=== PATIENT | female | born 1995 | race Caucasian/White ===

== ENCOUNTER 2018-08-24 11:42 | Emergency (ER) | payer OTHER ==
[~2018-08-24] VITALS: Ht 160 cm; Wt 127.0 kg
[2018-08-24 13:48] LABS: URINE BILIRUBIN NEGATIVE (Negative); URINE BLOOD NEGATIVE (Negative); URINE CLARITY CLEAR; URINE COLOR YELLOW; URINE GLUCOSE-RANDOM* NEGATIVE (Negative); URINE KETONES TRACE (Negative); URINE LEUKOCYTES TRACE (Negative); URINE NITRITE NEGATIVE (Negative); URINE PROTEIN (DIPSTICK) NEGATIVE (Negative); URINE SPECIFIC GRAVITY >= 1.030 (1.005-1.035)
[2018-08-24 13:55] LABS: AMP/METHAMP Negative (Negative); BARBITURATES Negative (Negative); BENZODIAZEPINES Negative (Negative); COCAINE Negative (Negative); METHADONE Negative (Negative); OPIATES Negative (Negative); PCP Negative (Negative)
[2018-08-24 14:59] LABS: HEMATOCRIT 43.2 % (37.0-47.0); HEMOGLOBIN 14.1 gm/dL (12.0-15.0); MCHC 32.7 g/dL (28.0-37.0); MCV 85.6 fL (80.0-100.0); PLATELET COUNT 248 thou/uL (150-400); RBC 5.05 mil/uL (4.20-5.00); RDW 17.9 % (10.5-14.5); WBC 9.7 thou/uL (4.0-11.0)
[2018-08-24 15:00] LABS: ANION GAP 9 mmol/L (7-16); BUN 9 mg/dL (7-18); CALCIUM 8.9 mg/dL (8.5-10.1); CHLORIDE 108 mmol/L (98-107); CO2 25 mmol/L (21-32); CREATININE 0.7 mg/dL (0.6-1.0); GLUCOSE 82 mg/dL (74-106); SODIUM 142 mmol/L (136-145)
[2018-08-24 15:05] LABS: ALBUMIN 3.3 g/dL (3.4-5.0); SALICYLATE 4.1 mg/dL (2.8-20.0); SGOT 27 U/L (15-37); SGPT 41 U/L (30-65); TOTAL BILIRUBIN 0.2 mg/dL (<0.1-1.0); TOTAL PROTEIN 6.9 g/dL (6.4-8.2)
[2018-08-24 15:25] LABS: ABSOLUTE NEUTROPHILS 5.6 thou/uL (1.4-8.2); ANISOCYTOSIS 1+
[2018-08-24] MEDS ORDERED: EFFEXOR XR75 MG PO (19:11)
[2018-08-24] MEDS ORDERED: CLONAZEPAM 0.50.5 M1 PO (19:12)
[2018-08-24] MEDS ORDERED: CLOZAPINE200 MG PO (19:12)
[2018-08-24] MEDS ORDERED: DEPAKOTE 250MG250 M1 PO (19:12)
[2018-08-24] MEDS ORDERED: COLACE100 MG PO (19:13)
[2018-08-24] MEDS ORDERED: FEOSOL325 M1 PO (19:13)
[2018-08-24] MEDS ORDERED: VERAPAMIL E.R240 M1 PO (19:14)
[2018-08-24] MEDS ORDERED: OMEPRAZOLE40 MG PO (19:14)
[2018-08-24] MEDS ORDERED: NEURONTIN 400400 M1 PO (19:14)
[2018-08-24] MEDS ORDERED: TYLENOL325 MG PO (19:15)
[2018-08-24] MEDS ORDERED: DOXEPIN 25 MG C25 M1 PO (19:15)
[2018-08-24] MEDS ORDERED: MELATONIN3 MG PO (19:15)
[2018-08-24] MEDS ORDERED: XARELTO20 MG PO (19:15)
[2018-08-24] MEDS ORDERED: MIRALAX17 GM PO (19:16)
[2018-08-24] MEDS ORDERED: VENTOLIN HFA 1818 GM INH (19:16)
[2018-08-24] MEDS ORDERED: ONDANSETRON HCL4 M2 PO (19:16)
[2018-08-24] MEDS ORDERED: BENADRYL25 MG PO (19:16)
[2018-08-24] MEDS ORDERED: SILTUSSIN100 MG/5 M PO (19:17)
[2018-08-24] MEDS ORDERED: ABILIFY MAINTE400 M1 IM (19:17)
[2018-08-24] MEDS ORDERED: DEPO-PROVER150 MG/M1 IM (19:18)
[2018-08-24] MEDS ORDERED: IMODIUM A-D2 MG PO (19:19)
[2018-08-24] MEDS ORDERED: PEPTO-BISM262 MG/15 PO (19:19)
[2018-08-25 09:19] VITALS: BP 117/66
== END 2018-08-25 09:22 | disposition short-term general hospital (02) ==
LOC: ER 11:42
PROVIDERS: Physician Assistant
DX: R45.851 Suicidal ideations (principal); M79.5 Residual foreign body in soft tissue; F20.9 Schizophrenia, unspecified; J45.909 Unspecified asthma, uncomplicated; I10 Essential (primary) hypertension; Z91.048 Other nonmedicinal substance allergy status; Z88.8 Allergy status to other drugs, medicaments and biological substances; Z88.0 Allergy status to penicillin

== ENCOUNTER 2018-09-13 19:59 | Emergency (ER) | payer OTHER ==
[~2018-09-13] VITALS: Ht 157.5 cm; Wt 88.5 kg
[~2018-09-13 19:59] MED LIST: ABILIFY MAINTE400 M1 IM; BENADRYL25 MG PO; CLONAZEPAM 0.50.5 M1 PO; CLOZAPINE200 MG PO; COLACE100 MG PO; DEPAKOTE 250MG250 M1 PO; DEPO-PROVER150 MG/M1 IM; DOXEPIN 25 MG C25 M1 PO; EFFEXOR XR75 MG PO; FEOSOL325 M1 PO; IMODIUM A-D2 MG PO; MELATONIN3 MG PO; MIRALAX17 GM PO; NEURONTIN 400400 M1 PO; OMEPRAZOLE40 MG PO; ONDANSETRON HCL4 M2 PO; PEPTO-BISM262 MG/15 PO; SILTUSSIN100 MG/5 M PO; TYLENOL325 MG PO; VENTOLIN HFA 1818 GM INH; VERAPAMIL E.R240 M1 PO; XARELTO20 MG PO
[2018-09-13 20:38] LABS: URINE CLARITY CLEAR; URINE COLOR YELLOW; URINE PROTEIN (DIPSTICK) NEGATIVE (Negative); URINE SPECIFIC GRAVITY > 1.030 (1.005-1.035)
[2018-09-13 20:39] LABS: URINE BILIRUBIN NEGATIVE (Negative); URINE BLOOD NEGATIVE (Negative); URINE GLUCOSE-RANDOM* NEGATIVE (Negative); URINE KETONES NEGATIVE (Negative); URINE LEUKOCYTES-REFLEX NEGATIVE (Negative); URINE NITRITE-REFLEX NEGATIVE (Negative); URINE UROBILINOGEN 0.2 E.U./dl (0.2-1.0)
[2018-09-13 20:42] LABS: AMP/METHAMP Negative (Negative); BARBITURATES Negative (Negative); BENZODIAZEPINES Negative (Negative); COCAINE Negative (Negative); METHADONE Negative (Negative); OPIATES Negative (Negative); PCP Negative (Negative)
[2018-09-13 20:48] LABS: HEMATOCRIT 43.6 % (37.0-47.0); HEMOGLOBIN 15.1 gm/dL (12.0-15.0); MCH 30.1 pg (26.0-34.0); MCHC 34.7 g/dL (28.0-37.0); MCV 86.7 fL (80.0-100.0); PLATELET COUNT 232 thou/uL (150-400); RBC 5.04 mil/uL (4.20-5.00); WBC 10.6 thou/uL (4.0-11.0)
[2018-09-13 20:56] LABS: ANION GAP 10 mmol/L (7-16); BUN 9 mg/dL (7-18); CALCIUM 8.8 mg/dL (8.5-10.1); CHLORIDE 106 mmol/L (98-107); CO2 25 mmol/L (21-32); CREATININE 0.8 mg/dL (0.6-1.0); GLUCOSE 92 mg/dL (74-106); POTASSIUM 3.6 mmol/L (3.5-5.1); SODIUM 141 mmol/L (136-145)
[2018-09-13 21:02] LABS: ALBUMIN 3.6 g/dL (3.4-5.0); SALICYLATE 5.2 mg/dL (2.8-20.0); SGOT 28 U/L (15-37); SGPT 40 U/L (30-65); TOTAL BILIRUBIN 0.2 mg/dL (<0.1-1.0); TOTAL PROTEIN 7.5 g/dL (6.4-8.2)
[2018-09-13 21:05] LABS: APTT 33.1 Seconds (24.5-32.8); INR 1.1; PROTIME 11.4 Seconds (9.3-11.4)
[2018-09-13 21:10] LABS: ABSOLUTE NEUTROPHILS 5.5 thou/uL (1.4-8.2)
[2018-09-13 21:11] LABS: PLATELET ESTIMATE NORMAL; POLYCHROMASIA SLIGHT
[2018-09-14 20:45] VITALS: BP 108/72
== END 2018-09-14 20:45 | disposition short-term general hospital (02) ==
LOC: ER 19:59
PROVIDERS: Emergency Medicine
DX: S50.351A Superficial foreign body of right elbow, initial encounter (principal); R45.851 Suicidal ideations; F25.9 Schizoaffective disorder, unspecified; J45.909 Unspecified asthma, uncomplicated; I10 Essential (primary) hypertension; Z88.0 Allergy status to penicillin; Z88.8 Allergy status to other drugs, medicaments and biological substances; X78.9XXA Intentional self-harm by unspecified sharp object, initial encounter; Y93.89 Activity, other specified; Y92.89 Other specified places as the place of occurrence of the external cause; Y99.8 Other external cause status

== ENCOUNTER 2018-10-29 12:34 | Emergency (ER) | payer OTHER ==
[~2018-10-29] VITALS: Ht 157.5 cm; Wt 102.5 kg
[2018-10-29 15:31] LABS: ABSOLUTE NEUTROPHILS 6.9 thou/uL (1.4-8.2); BASOPHILS 0.8 % (0.0-2.0); EOSINOPHILS 0.3 % (0.0-3.0); HEMATOCRIT 46.8 % (37.0-47.0); HEMOGLOBIN 16.3 gm/dL (12.0-15.0); LYMPHOCYTES 28.9 % (24.0-44.0); MCHC 34.9 g/dL (28.0-37.0); MONOCYTES 5.8 % (1.0-8.0); PLATELET COUNT 248 thou/uL (150-400); POLYS 64.2 % (36.0-66.0); RBC 5.26 mil/uL (4.20-5.00); RDW 14.1 % (10.5-14.5); WBC 10.7 thou/uL (4.0-11.0)
[2018-10-29 15:35] LABS: CALCIUM 9.5 mg/dL (8.5-10.1); CREATININE 0.9 mg/dL (0.6-1.0); POTASSIUM 3.6 mmol/L (3.5-5.1)
[2018-10-29 18:11] LABS: URINE BILIRUBIN NEGATIVE (Negative); URINE BLOOD NEGATIVE (Negative); URINE CLARITY CLEAR; URINE COLOR YELLOW; URINE GLUCOSE-RANDOM* NEGATIVE (Negative); URINE KETONES 1+ (Negative); URINE LEUKOCYTES-REFLEX NEGATIVE (Negative); URINE NITRITE-REFLEX NEGATIVE (Negative); URINE PROTEIN (DIPSTICK) TRACE (Negative); URINE SPECIFIC GRAVITY 1.025 (1.005-1.035)
[2018-10-29 19:40] VITALS: BP 108/58
== END 2018-10-29 19:44 | disposition home or self-care (01) ==
LOC: ER 12:34
PROVIDERS: Emergency Medicine
DX: B34.9 Viral infection, unspecified (principal); J45.909 Unspecified asthma, uncomplicated; F25.9 Schizoaffective disorder, unspecified; I10 Essential (primary) hypertension; Z88.0 Allergy status to penicillin; Z88.8 Allergy status to other drugs, medicaments and biological substances

== ENCOUNTER 2019-08-09 23:21 | Inpatient (IN) | payer OTHER ==
[~2019-08-09] VITALS: Ht 162.6 cm; Wt 104.3 kg
[2019-08-09 23:22] VITALS: BP 111/46
[2019-08-10 00:43] LABS: ABSOLUTE NEUTROPHILS 5.8 thou/uL (1.4-8.2); BASOPHILS 1.3 % (0.0-2.0); EOSINOPHILS 0.9 % (0.0-3.0); HEMATOCRIT 42.8 % (37.0-47.0); HEMOGLOBIN 14.5 gm/dL (12.0-15.0); MCH 30.4 pg (26.0-34.0); MCHC 33.9 g/dL (28.0-37.0); MCV 89.8 fL (80.0-100.0); MONOCYTES 6.4 % (1.0-8.0); PLATELET COUNT 310 thou/uL (150-400); POLYS 49.4 % (36.0-66.0); RBC 4.77 mil/uL (4.20-5.00); RDW 12.8 % (10.5-14.5); WBC 11.6 thou/uL (4.0-11.0)
[2019-08-10 00:46] LABS: URINE BILIRUBIN NEGATIVE (Negative); URINE BLOOD NEGATIVE (Negative); URINE CLARITY CLEAR; URINE COLOR YELLOW; URINE GLUCOSE-RANDOM* NEGATIVE (Negative); URINE KETONES NEGATIVE (Negative); URINE LEUKOCYTES-REFLEX NEGATIVE (Negative); URINE NITRITE-REFLEX NEGATIVE (Negative); URINE PROTEIN (DIPSTICK) NEGATIVE (Negative); URINE UROBILINOGEN 0.2 E.U./dl (0.2-1.0)
[2019-08-10 01:26] LABS: ANION GAP 10 mmol/L (7-16); BUN 6 mg/dL (7-18); CALCIUM 8.8 mg/dL (8.5-10.1); CHLORIDE 105 mmol/L (98-107); CO2 25 mmol/L (21-32); CREATININE 0.7 mg/dL (0.6-1.0); GLUCOSE 113 mg/dL (74-106); POTASSIUM 3.6 mmol/L (3.5-5.1); SODIUM 140 mmol/L (136-145)
[2019-08-10 01:28] LABS: AMP/METHAMP Negative (Negative); BARBITURATES Negative (Negative); BENZODIAZEPINES Negative (Negative); COCAINE Negative (Negative); METHADONE Negative (Negative); OPIATES Negative (Negative); PCP Negative (Negative)
[2019-08-10 01:32] LABS: ALBUMIN 3.2 g/dL (3.4-5.0); SGOT 21 U/L (15-37); SGPT 26 U/L (30-65); TOTAL BILIRUBIN 0.3 mg/dL (<0.1-1.0); TOTAL PROTEIN 6.8 g/dL (6.4-8.2)
[2019-08-10 01:58] LABS: SALICYLATE < 2.8 mg/dL (2.8-20.0)
[2019-08-10 06:48] VITALS: BP 112/70
[2019-08-10 06:59] VITALS: BP 112/70
[2019-08-10 07:05] VITALS: BP 135/74
--- NOTE | 2019-08-10 17:37 | NUR ---
Received pt from the ER maintained NPO and suicinde precautions in place, pt has a sitter in the room. Pt mentioned during the admissio orders that she lives in a facility for the last 3 years and has not seen her family since. ONly her aunt from her father side would come to visit and she recently , this even is the reason why pt no longer wants to live and has tried to killing herself by swallowing a battery. This is not her first attmept to harm herself and statted would like to join her aunt. Pt stated that the battery she ingested came from a friend. Seen by GI, EGD done and ingested baterry removed. VS stable, POC followed no pain or distress has been noted or verbalized.
[2019-08-10 20:32] VITALS: BP 117/58
[2019-08-11 05:09] LABS: CALCIUM 8.1 mg/dL (8.5-10.1); CREATININE 0.7 mg/dL (0.6-1.0); POTASSIUM 3.5 mmol/L (3.5-5.1)
[2019-08-11 05:11] LABS: ABSOLUTE NEUTROPHILS 4.6 thou/uL (1.4-8.2); BASOPHILS 0.6 % (0.0-2.0); EOSINOPHILS 0.8 % (0.0-3.0); HEMATOCRIT 39.2 % (37.0-47.0); HEMOGLOBIN 13.7 gm/dL (12.0-15.0); LYMPHOCYTES 43.7 % (24.0-44.0); MCH 31.6 pg (26.0-34.0); MCHC 34.9 g/dL (28.0-37.0); MCV 90.5 fL (80.0-100.0); MONOCYTES 7.2 % (1.0-8.0); PLATELET COUNT 273 thou/uL (150-400); POLYS 47.7 % (36.0-66.0); RBC 4.33 mil/uL (4.20-5.00); RDW 12.9 % (10.5-14.5); WBC 9.6 thou/uL (4.0-11.0)
--- NOTE | 2019-08-11 08:44 | NUR ---
progress pt with sitter at bedside, reported hearing voices that tell her to kill herself, evening meds given early per pt's request went to sleep soon after. reg diet ordered tolerated water juice and a boxed lunch. voiding qs no bm this shift no verbalizations of intentions to hurt herself at this time.
[2019-08-11 08:55] VITALS: BP 103/55
--- NOTE | 2019-08-11 10:43 | HC ---
[facility] [place] [address] CONSULTATION Name: MARCO A VELÁSQUEZ Room #: 460-P [facility] IN M.R.#: [id number] Admission: 08/10/19 Attend Phys: Kirk Lozano MD Discharge: Date of : 94 Report #: [id number] THIS REPORT FOR: //name// CC: Jesus Lozano MD DATE OF SERVICE: 08/10/2019 HISTORY OF PRESENT ILLNESS: The patient is a 24-year-old female with a history of schizoaffective disorder, borderline personality, who swallowed a battery last evening at approximately 6:00 p.m. Apparently, she has done this in the past. She has had to have it removed. At this time, she denies any abdominal pain. No nausea or vomiting. No fevers or chills. Her bowel movements have been normal. She denies any GI symptoms in general. No history of dysphagia. She underwent KUB on admission through the Emergency Room last night, ingested foreign body was noted to be in the stomach, otherwise negative. Chest x-ray, 8 mm right upper lobe noncalcified soft tissue nodule, otherwise no acute process. I spoke with the ER physician early this morning. The battery was described as possible double A type and not a button battery. I repeated a KUB this morning. It once again shows small standard size type double A or triple A battery likely in the stomach. Because of this, we discussed proceeding with removal today. PAST MEDICAL HISTORY: Schizoaffective disorder, previous history of pulmonary embolus, asthma, posttraumatic stress disorder, borderline personality, history of substance abuse, hypertension, obesity. MEDICATIONS ON ADMISSION: Effexor, clonazepam, clozapine, Depakote, Colace, iron, omeprazole 20 mg b.i.d., Neurontin, verapamil, Xarelto, doxepin, Tylenol, Benadryl, Zofran p.r.n., MiraLax p.r.n., Ventolin, guaifenesin p.r.n., Abilify, Depo-Provera, Imodium p.r.n., Pepto-Bismol p.r.n. ALLERGIES: BUPROPION, LEXAPRO, PENICILLIN, TRAZODONE. REVIEW OF SYSTEMS: As per HPI. FAMILY HISTORY: Unknown. SOCIAL HISTORY: History of cigarette smoking reportedly. No alcohol. PHYSICAL EXAMINATION: VITAL SIGNS: Temperature is 97.8, pulse 104, blood pressure 135/74, respiratory rate is 22. GENERAL: She is alert and oriented x 3, in no acute distress. HEENT: Sclerae nonicteric. Oropharynx clear. [facility] [address] [place] [address] CONSULTATION Name: MARCO A VELÁSQUEZ Room #: 460-P [facility] IN M.R.#: [id number] Admission: 08/10/19 Attend Phys: Kirk Lozano MD Discharge: Date of : 94 Report #: [id number] NECK: Supple, without lymphadenopathy. CARDIOVASCULAR: Regular rate and rhythm. CHEST: Clear to auscultation bilaterally. ABDOMEN: Soft, nontender, nondistended, normoactive bowel sounds. EXTREMITIES: No cyanosis, clubbing or edema. LABORATORY DATA: Sodium 140, potassium 3.6, chloride 105, bicarbonate 25, BUN 6, creatinine 0.7, glucose 113, AST 21, total bilirubin 0.3, calcium 8.8, alkaline phosphatase 75, ALT is 26, total protein 6.8, albumin 3.2, Tylenol less than 2. Alcohol less than 10. Salicylate less than 2.8. Urine drug screen was negative. WBC is 11.6, hemoglobin 14.5, platelet count is 310. ASSESSMENT AND PLAN: Foreign object within the stomach. The patient with a history of psychiatric disorder. Apparently, this has happened in the past. I would recommend proceeding with upper endoscopy with removal. The patient is unable to give consent, guardian is not available. This will be done as an emergent procedure. No signs of bleeding or abdominal pain at this time. I will make further recommendations after endoscopy. Thank you for allowing me to participate in her care. <ELECTRONICALLY SIGNED> By: Lamin Munroe MD 08/11/19 1043 [id number] 1730 Lamin Munroe MD /nt
--- NOTE | 2019-08-11 10:43 | P ---
[facility] [place] [address] PROCEDURE REPORT Name: MARCO A VELÁSQUEZ Room #: 460-P [facility] IN M.R.#: [id number] Admission: 08/10/19 Attend Phys: Kirk Lozano MD Discharge: Date of : 94 Report #: [id number] THIS REPORT FOR: //name// CC: Jesus Lozano MD DATE OF SERVICE: 08/10/2019 PROCEDURE PERFORMED: Upper endoscopy with the removal of foreign object. HISTORY OF PRESENT ILLNESS: The patient is a 24-year-old female with a history of schizoaffective disorder, bipolar disorder, and intentional ingestion of battery. This has happened in the past. Apparently, she swallowed a double A or triple A type of battery apparently last evening around 06:00 p.m. KUB shows it is within the stomach. Repeat KUB this morning again shows it in the same area. Plan therefore is to proceed with upper endoscopy for a removal. DESCRIPTION OF PROCEDURE: The procedure was performed under an emergent basis, as the patient is unable to give a consent and guardian is not available. Next, propofol was given per anesthesia. Next, using a standard Olympus upper endoscope, the scope was placed in the patient's mouth and advanced under direct vision through the esophagus, stomach, and into the second portion of the duodenum. The larynx was normal in appearance. The esophagus was normal throughout. GE junction was normal. Upon entering the stomach, a triple A single battery was noted in the gastric body. There were some areas of gastritis noted in the body as well as the antrum. No ulcerations or bleeding. I did not obtain biopsies, as the patient has been on Xarelto. The pylorus was normal and patent. The duodenal bulb and first and second portions were all normal. The scope was then brought back up into the patient's stomach. I was able to grasp the battery with a basket and this was pulled out with the scope through the patient's esophagus. Unfortunately, the battery slipped out in the oropharyngeal area. This could be seen near the larynx. At this point, Dr. Ana Wilson was able to use a laryngoscope to look back in her oropharynx and grasp it with a forceps and removed the battery without difficulty. I then proceeded with advancing the scope back into the patient's stomach. There was no evidence of a mucosal tear or bleeding after the procedure. The scope was then withdrawn and the procedure terminated. The patient tolerated the procedure well. IMPRESSION: 1. Foreign body removal as described above. A single triple A battery was noted and removed. No other objects were seen. 2. Gastritis may be secondary to battery irritation. No evidence of ulceration or bleeding. [address] [address] PROCEDURE REPORT Name: MARCO A VELÁSQUEZ Room #: 460-P [facility] IN M.R.#: [id number] Admission: 08/10/19 Attend Phys: Kirk Lozano MD Discharge: Date of : 94 Report #: [id number] RECOMMENDATIONS: 1. Observe the patient post-procedure. 2. Psychiatry is following. 3. We will advance to a regular diet as tolerated. Thank you for allowing me to participate in her care. <ELECTRONICALLY SIGNED> By: Lamin Munroe MD 08/11/19 1043 1051 1755 Lamin Munroe MD /nt
[2019-08-11 16:30] VITALS: BP 130/68
--- NOTE | 2019-08-11 18:33 | NUR ---
Assumed patient care at 0715. Patient continues on a one-to-one status for suicidal ideations and swallowing objects in attempt to self harm. She has not displayed any self harming behaviors during this shift. Patient states "I don't want to hurt myself, the voices tell me too." Patient has been compliant with her medications. Behavior has been calm and appropriate. Affect is flat. Patient is up ad stefanie in room, independent with ADL's. She has spent most of this shift sleeping and watching television. Vital signs have been stable. POC followed. Will continue to monitor.
[2019-08-11 18:46] VITALS: BP 104/65
[2019-08-12 06:27] VITALS: BP 111/50
--- NOTE | 2019-08-12 06:28 | NUR ---
PATIENT ALERT AND ORIENTED X4. REMAINS WITH 1:1. STATED SHE HEARS VOICES TELLING HER TO HURT HERSELF. DENIES PAIN. NO UNUSUAL BEHAVIOR NOTED LAST NIGHT. PATIENT SLEPT MOST OF THE NIGHT.
[2019-08-12 08:00] VITALS: BP 96/64
--- NOTE | 2019-08-12 13:38 | NUR ---
INITIAL ASSESSMENT: JEAN-PIERRE received consult. JEAN-PIERRE reviewed chart and spoke with nursing and attending physician. Pt was admitted from [facility] due to intentional ingestion/SI. Pt swallowed a AAA battery, which was removed via EGD per GI. Pt has 1:1 sitter present at bedside. Pt with hx of depression/SI. Pt is a [place] of the state through [facility]. JEAN-PIERRE spoke with Mechelle at the [facility] Public Production Material Coordinator's Office this morning to provide update. JEAN-PIERRE discussed with attending physician who is recommending inpt psych placement, as pt remains suicidal. Psych consulted and is following. JEAN-PIERRE and attending physician spoke with Chen at the PA office regarding plan for tx to inpt psych. Chen gives consent for pt to transfer. Request made for pt to tx to a facility [place] the [place] side, such as [facility]. account planner to fax referral to intake at [facility]. Guardianship ppwk placed on chart. JEAN-PIERRE is following to assist as needed with discharge planning.
--- NOTE | 2019-08-12 13:51 | NUR ---
DISCHARGE PLANNING. PATIENT RESIDES AT [facility]. INTPATIENT PSYCH RECOMMENDED PER ATTENDING AT DISCHARGE DUE TO SUICIDAL IDIATIONS. PATIENT REFERRAL FAXED TO [facility]. AWAITING RESPONSE. FOLLOWING.
[2019-08-12 15:00] VITALS: BP 97/69
--- NOTE | 2019-08-12 18:24 | NUR ---
Assumed patient care at 0715. Patient continues to deny any suicidal ideations, states "the voices are the ones that tell me to kill myself", and, "I don't want to kill myself." Patient has not made any self harm threats and/or attempts. She has spent most of the day sleeping. Her blood pressures have been lower than usual but, she has not been drinking any water, stating, "I don't like it." This nurse has educated her on the importance of drinking plenty of water to keep hydrated. She has been trying to drink more this evening. POC followed. Will continue to monitor.
[2019-08-12 19:26] VITALS: BP 109/73
--- NOTE | 2019-08-13 04:27 | NUR ---
ASSUMED PATIENT CARE AT APPROX 1999. ASSESSMENT CHARTED. MEDICATIONS GIVEN PER MAR
--- NOTE | 2019-08-13 04:30 | NUR ---
ASSUMED PATIENT CARE AT APPROX. 1999. ASSESSMENT CHARTED. MEDICATION GIVEN PER NOV. VSS, BP IS STABLIZING. PATIENT IS A&0X4 AND IS HERE FOR A SUICIDE ATTEMPT. PATIENT SWALLOWED BATTERIES. PATIENT HAS A 1:1 SITTER AND IS BEING MONITORED 10/04. PATIENT SAYS "THE VOICES GET WORSE AT NIGHT". SITTER WAS TOLD TO LOOK OUT FOR SELF HARM THROUGHOUT NIGHT. PATIENT DENIES ANY VOICES BOTHERING HER AT THIS TIME. PATIENT IS TAKING MEDS WITH APPLE JUICE TO ENCOURAGE PO FLUID INTAKE. PATIENT REQUESTED A BREATHING TX FOR ASTHMA SYMPTOMS. PATIENT VOICES NO OTHER CONCERNS AT THIS TIME. PER CM, POSSIBLE D/C TO [facility] IN AM. WILL CONTINUE TO MONITOR AND FOLLOW POC
[2019-08-13 08:43] VITALS: BP 109/64
[2019-08-13 16:00] VITALS: BP 114/71
[2019-08-13 19:27] VITALS: BP 114/69
--- NOTE | 2019-08-13 19:50 | NUR ---
Assumed pt care this am, pt has a sitter 1:1. Pt ambulated the halls with the sitter and took a bath today. Pt still has "voices in her head" that tell her "to hurt herself with her glasses" but us easily redirected. Pt would often talk to the nurses and would ask for hugs and would verbalize when the voices would come. Pt exhibited redness on her arms and hands, managed with medication and informed MD, relief was noted. Awaiting placement for a inpt psych. No signs or distress noted.
--- NOTE | 2019-08-14 03:55 | NUR ---
Pt. rested quietly during the night when checked on during frequent rounds. She does verbalize that she hears voices. Pt. does c/o a cough and was given cough medication (see emar) and breathing treatment with some relief noted. Sitter continues to be in the room all shift.
[2019-08-14 07:06] VITALS: BP 110/61
[2019-08-14 07:25] VITALS: BP 140/97
[2019-08-14 08:25] VITALS: BP 129/85
--- NOTE | 2019-08-14 10:37 | NUR ---
JEAN-PIERRE reviewed chart and spoke with nursing and attending physician. Pt has 1:1 sitter at bedside due to suicidal ideation. Recommendation made for pt to transfer to inpatient psych facility. Pt is medically stable for transfer. JEAN-PIERRE spoke with Mark in intake at [facility], who states that they will need a new referral faxed to them, as they did not hear back from JEAN-PIERRE yesterday. Info with guardianship ppwk faxed to [facility] for review. JEAN-PIERRE updated Chen at the [facility] PA office. The PA office is agreeable with any inpt psych facility in [place] should [facility] not have a bed available for pt. JEAN-PIERRE is following to assist as needed with discharge planning.
[2019-08-14 15:43] VITALS: BP 153/63
[2019-08-14 16:34] VITALS: BP 135/58
[2019-08-14 18:40] VITALS: BP 114/76
--- NOTE | 2019-08-14 19:47 | NUR ---
Assumed pt care this am, still with a sitter 1:1, auditory hallucinations still present but have decreased comapred to yesterday. Pt has been walking the halls with the sitter. No IV present since yesterday (none required). Pt had a bm after medication and other interventions have been note. No signs or verbalizations of distress have been noted. POC followed, awaiting placement.
[2019-08-15 04:51] VITALS: BP 101/67
--- NOTE | 2019-08-15 06:00 | NUR ---
Pt. rested quietly at intervals during the night when checked on during frequent rounds. She admits to hearing auditory voices, but does not voice anything about wanting to harm herself. Pt. reports having a stool during the shift. Sitter in room all shift.
[2019-08-15 07:47] VITALS: BP 118/60
--- NOTE | 2019-08-15 09:19 | NUR ---
ASSUMED CARE AROUND 0715. AXOX4. 1:1 SITTER AT ALL TIMES. C/O ZAPATA AND SORE THROAT. NEW ORDERS RECEIVED PER AT BEDSIDE. CALLED [facility] FOR TRANSFER. BED NOT AVAILABLE TODAY. NO S/S ACUTE DISTRESS NOTED OR REPORTED AT THIS TIME. WILL CONT TO MONITOR FOR ANY CHANGES IN CONDITION AND BED AVAILBILITY FOR INPT PSYCH
[2019-08-15 15:29] VITALS: BP 123/69
--- NOTE | 2019-08-15 15:36 | NUR ---
ASSUMED CARE AROUND 0715. D/C F/U COMPLETED. NOTED. VSS. ENCOURAGED DEEP BREATHING FOR QUALITY BREATHING. HEADACHE AND SORE TRHOAT TX COMPLETED. NO FURTHER C/O AT THIS TIME. 1:1 SITTER AT ALL TIMES. SAFETY MAINTAINTED. NO S/S ACUTE DISTRESS NOTED OR REPORTED AT THIS TIME. WILL CONT TO MONITOR FOR ANY CHANGES IN CONDITION.
[2019-08-15 20:25] VITALS: BP 98/60
--- NOTE | 2019-08-16 02:41 | NUR ---
PATIENT IS AOX4 MAKES NEEDS KNOWN. PATIENT IS ON 1:1 THIS SHIFT. PATIENT HAS LOW ANXIETY AND DEPRESSION THIS SHIFT. PATIENT CONTINUES TO SAY SHE HAS SUCIDAL AND IS HEARING VOICES THAT TELLS HER TO HARM HERSELF. PATIENT IS SEEING UNSEEN OTHERS. PATIENT IS CALM AND COOPERATIVE WITH MEDS AND CARE. PATIENT HAS A FLAT AFFECT, POOR EYE CONTACT, FAIR GROOMING AND HYGIENE. PAGTIENT ENCOURAGED FLUIDS. PATIENT IN BED ASLEEP AT THIS TIME BREATHING REGULAR AND UNLABOURED.
[2019-08-16 04:23] LABS: ABSOLUTE NEUTROPHILS 5.2 thou/uL (1.4-8.2); BASOPHILS 0.4 % (0.0-2.0); EOSINOPHILS 1.9 % (0.0-3.0); HEMATOCRIT 41.1 % (37.0-47.0); HEMOGLOBIN 14.2 gm/dL (12.0-15.0); LYMPHOCYTES 37.3 % (24.0-44.0); MCH 31.8 pg (26.0-34.0); MCHC 34.6 g/dL (28.0-37.0); MCV 91.8 fL (80.0-100.0); MONOCYTES 4.9 % (1.0-8.0); PLATELET COUNT 218 thou/uL (150-400); POLYS 55.5 % (36.0-66.0); RBC 4.48 mil/uL (4.20-5.00); RDW 12.7 % (10.5-14.5); WBC 9.4 thou/uL (4.0-11.0)
[2019-08-16 05:55] VITALS: BP 101/55
[2019-08-16 08:30] VITALS: BP 136/88
--- NOTE | 2019-08-16 09:55 | NUR ---
Following for d/c planning needs. Reviewed chart. Called [facility] and they do not have a bed available today. Called [facility] and faxed referral. Called [facility] and faxed referral. Called [facility] in [facility] and faxed referral. Will await return call re: bed availability and acceptance.
--- NOTE | 2019-08-16 17:06 | NUR ---
Assumed pt care this am, still with a siter 1:1. VS stable, voices in her head are still verbalized by the pt. Easily redirected, walks the halls and does activities with the nurses and sitter. Pt was able to have several small bowel movements this am. Medications and diet is well tolerated. POC followed, no signs or verbalizations of distress have been noted./
[2019-08-16 18:06] VITALS: BP 117/78
[2019-08-16 19:06] VITALS: BP 139/85
--- NOTE | 2019-08-17 03:54 | NUR ---
ASSUMED CARE FROM DAY SHIFT PT SITTING UP IN CHAIR PLAYING CARDS WITH SITTER, CALM COOPERATIVE , DISUCUSS PLAN OF CARE AND VERBALIZED UNDERSTANDING AND AGREEABLE. PO MEDICATION TAKEN NO CONCERNS VOICED, DENIES SI THOUGHTS AT TIME OF ASSESSMENT, WILL CONITNUE TO CLOSELY MONITOR, WILL REPORT CHANGES OR ABNORMAL FINDINGS.
[2019-08-17 07:58] VITALS: BP 102/67
--- NOTE | 2019-08-17 17:30 | NUR ---
PT ASSESSED AT START OF SHIFT. VERY CALM AND COOPERATIVE. SOMEWHAT FLAT. MORE CONVERSANT THIS AFTERNOON AND EXPRESSED SHE WAS STILL HEARING VOICES TELLING HER TO HURT HERSELF. EATING AND DRINKING WELL. TOOK SHOWER THIS AFTERNOON. SITTING UP IN THE CHAIR LOOKING AT MAGAZINE. SITTER AT BEDSIDE ALL SHIFT.
[2019-08-17 17:54] VITALS: BP 112/63
[2019-08-17 20:42] VITALS: BP 110/55
[2019-08-18 06:38] VITALS: BP 124/86
[2019-08-18 07:33] VITALS: BP 103/51
--- NOTE | 2019-08-18 07:49 | NUR ---
PROGRESS PT A/O X4 REPORTS STILL HEARING VOICES BUT NO INTENTION TO ACT AND IS NOT FEARFUL AT THIS TIME. USES CALL LIGHT APPROPRIATELY. EATING DRINKING AND VOIDING QS. REPORTED SHE IS BORED BEING STUCK IN ROOM BUT SHE LIKES HAVING THE SITTER THERE TO TALK TO. WAITING FOR PLACEMENT AT AN INPATIENT PSYCH FACILITY.
--- NOTE | 2019-08-18 08:30 | NUR ---
PT AWAKE THIS AM. PT STATED SHE WANTED SOMETHING FOR HER THROAT THAT IS SORE. PT STATED SHE WANTED TO EAT BREAKFAST FIRST. PT HAS 1:1 SITTER FOR SI. PT HEARS VOICES. PT HAS EXP RHONCHI TO UPPER LOBES.
--- NOTE | 2019-08-18 09:30 | NUR ---
PT RESTING AFTER BREAKFAST.
--- NOTE | 2019-08-18 10:47 | NUR ---
ADM BENZOCAINE ONE SPRAY TO THROAT. PT WANTING TO WALK AROUND UNIT. PT WANTING A SHOWER. PT STATED SHE MISSES HER BINKIE FROM HOME. PT WANTS SOMETHING TO SUCK ON.
--- NOTE | 2019-08-18 14:40 | NUR ---
PT WANTING TO HAVE INHALER OR RT TX. WILL PAGE FOR TX.
--- NOTE | 2019-08-18 18:25 | NUR ---
PT HAS BEEN WITH 1:1 TODAY. PT HAD SHOWER TODAY. PT ASKING ABOUT WHEN SHE IS GOING TO BE DISCHARGED AND WHEN. STATED THAT THE SW HAS BEEN TRYING TO FIND HER PLACEMENT AND WILL JUST HAVE TO CALL FACILITIES DAILY. PT UNDERSTOOD.
--- NOTE | 2019-08-18 18:54 | NUR ---
ADM HURRICAINE SPRAY TO THROAT FOR SORE THROAT.
[2019-08-18 19:08] VITALS: BP 127/83
--- NOTE | 2019-08-19 02:20 | NUR ---
PATIENT AOX4 MAKES NEEDS KNOWN. PATIENT HAD HIGH ANXIETY AND DEPRESSION THIS SHIFT. PATIENT CONTINUES TO SAY SHE HAS THOUGHTS OF HARMING HERSELF, PATIENT IS ON 1:1. PATIENT IS HEARING VOICES AND SEEING UNSEEN OTHERS. PATIENT HEARING VOICES TO HURT HERSELF, PATIENT REEDUCATED THAT THE VOICES ARE NOT REAL.PATIENT ENCOURAGED FLUIDS AND SNACKS THIS SHIFT.PATIENT HAS A FLAT AFFECT, POOR EYE CONTACT, FAIR GROOMING AND HYGIENE. PATIENT IN BED ASLEEP AT THIS TIME BREATHING REGULAR AND UNLABOURED.
[2019-08-19 08:43] VITALS: BP 119/75
--- NOTE | 2019-08-19 14:53 | NUR ---
SPOKE WITH DR STEPHEN THIS AM SHE CONTACTED PT'S GUARDIAN AND SHE INDICATED THAT THE OFFICE IS TO HAVE A MEETING ABOUT HER POSSIBLE RETURNING TO [facility] AND CONTACT HER BACK THIS AFTERNOON WITH THEIR DETERMINATION. CM CALLED [facility] AND THEY INDICATED REFERRAL COULD BE SENT TO [facility]IR [facility] [place] THROUGH. WILLIAM SENT. CM CALLED [facility] THEY ARE FULL. CM CALLED [facility] AND THEY ARE FULL TODAY WELL. CM AWAITING RESPONSE FROM DR. STEPHEN AND THE GUARDIANS OFFICE.
--- NOTE | 2019-08-19 15:15 | NUR ---
Nutrition: Assessed due to LOS. Here for SI, ingestion. Chart reviewed. EMR states pt still having thoughts to harm herself, noted to be a 1:1 overnight. On a regular diet, eating very well. Has consumed 95-100% of meals today, overall meal average of 83% per the last 14 recorded meals. Recent BM 08/17. Weight unchanged over the year, reporting a wt of 226# per 10/29/18, with admitting wt of 227#. Given adequate PO intake and liberalized diet, no further nutrition recommendations at this time. Awaiting placement. Low nutrition risk.
[2019-08-19 15:30] VITALS: BP 116/55
[2019-08-19 19:03] VITALS: BP 90/60
--- NOTE | 2019-08-20 02:06 | NUR ---
PATIENT AOX4 MAKES NEEDS KNOWN. PATIENT IS ON 1:1 FOR SUCIDAL IDELATION. PATIENT HAD LOW ANXIETY AND DEPRESSION THIS SHIFT 12/26, 10 BEING THE HIGHEST. PATIENT CONTINUES TO SAY SHE WANT TO HARM HERSELF D/T AUDITORY HALLUCINATION. PATIENT HAS VISUAL HALLUCINATION THIS SHIFT. PATIENT HAD A FLAT AFFECT, POOR EYE CONTACT, FAIR GROOMING AND HYGIENE. PATIENT DENIED PAIN OR DISCOMFORT. PATIENT CALM AND COOPERATIVE WITH MEDS AND CARE. PATIENT IN BED ASLEEP AT THIS TIME BREATHING REGULAR AND UNALBOURED.
[2019-08-20 06:05] VITALS: BP 104/60
--- NOTE | 2019-08-20 13:26 | NUR ---
ANTICIPATED DISCHARGE BACK TO [facility]. PA CLEARED PATIENT FOR ADMISSION BACK TO [facility] PER UNIT SW. ATTENDING NOTIFIED AND TO COMPLETE ORDERS. [facility] GENERAL ACCOUNTING MANAGER NOTIFIED PER UNIT SW. WILL FACILITATE DISCHARGE ONCE ORDERS HAVE BEEN COMPLETED. FOLLOWING.
[2019-08-20 16:08] VITALS: BP 116/85
--- NOTE | 2019-08-20 16:41 | NUR ---
AWAITING PSYCH TO SEE PT. CM SPOKE WITH DEREK AT [facility] AND INDIATED THAT PT WOULD LIKELY RETURN THIS DAY. CM SPOKE WITH PA OFFICE [facility] AND OF THIS NOTE WE ARE STILL AWAITING PSYC VISIT AND ORDERS. CARE TEAM AGREEABLE WITH PT DISCHARGING BACK TO [facility] TOMORROW. CM TO FOLLOW INDICATED WITH DISCHARGE PLANNING.
--- NOTE | 2019-08-20 17:21 | NUR ---
PT A&OX4, VSS. PATIENT HAS FLAT AFFECT, COOPERATIVE AND CALM. PATIENT STATES SHE CONTINUE TO HAVE SUICIDAL IDEATIONS AND VISUAL AND AUDITORY HALLUCINATIONS TELLING HER TO HARM HERSELF. PATIENT IS TOLERATING DIET AND SITTER REMAINS IN ROOM. NO SIGNS OF DISTRESS. WILL CONTINUE TO MONITOR.
[2019-08-20 21:44] VITALS: BP 110/61
--- NOTE | 2019-08-21 05:02 | NUR ---
assumed pt care @191. pt a&ox4. no changes overnight. pt said she was having visual and auditory hallucinations and theyre telling her to hurt herself, but she will not. pt has a 1:1 sitter. plan is to d/c pt today. v/s stable. no s/s of distress. will cont to monitor
[2019-08-21 07:21] VITALS: BP 108/69
[2019-08-21 14:08] VITALS: BP 108/69
--- NOTE | 2019-08-21 15:40 | NUR ---
PT IS TO DISCHARGE BACK TO [facility] THIS DAY. PT HAS BEEN CLEARED BY PSYCH AND HER GUARDIAN IS AWARE AND AGREEABLE. [facility] IS TO TAKE PT AT 1800. CHART COPY ORDERED. ORDERS FAXED. REPORT TO BE CALLED TO THE FACILITY AT . NO OTHER CM INTERVENTION INDICATED. CASE CLOSED.
--- NOTE | 2019-08-21 17:08 | NUR ---
PATIENT HAS REMAINED ON 1:1 THROUGH THE DAY. DENIES NEGATIVE THOUGHTS ABOUT HARMING HERSELF. ONLY ASKED FOR MORE FOOD AFTER MEALS SHE STATES SHE WAS NOT EATING TO HER FILL. NO COMPLAIN OF PAIN. NO AGITATION. DOES SEEM WITHDRAWN SOMETIMES. IS PLEASANT WITH CARE. SHE WILL BE DISCHARGED THIS PM TO HOME.
== END 2019-08-21 19:41 | DRG 394 ==
LOC: ER 23:21 → EROBS 08-10 01:40 → 4W 08-10 01:40
PROVIDERS: Emergency Medicine; ADMIT Internal Medicine
PROC: 0DC68ZZ Extirpation of Matter from Stomach, Via Natural or Artificial Opening Endoscopic (ICD-10-PCS; principal; 2019-08-10)
DX: T18.2XXA Foreign body in stomach, initial encounter (principal); R45.851 Suicidal ideations; K29.70 Gastritis, unspecified, without bleeding; J45.909 Unspecified asthma, uncomplicated; I10 Essential (primary) hypertension; E66.9 Obesity, unspecified; F17.210 Nicotine dependence, cigarettes, uncomplicated; F25.9 Schizoaffective disorder, unspecified; K59.00 Constipation, unspecified; Z86.711 Personal history of pulmonary embolism; Z88.0 Allergy status to penicillin; Z88.8 Allergy status to other drugs, medicaments and biological substances; Z68.39 Body mass index [BMI] 39.0-39.9, adult; X58.XXXA Exposure to other specified factors, initial encounter; Y93.89 Activity, other specified; Y92.89 Other specified places as the place of occurrence of the external cause; Y99.8 Other external cause status
CPT/HCPCS: 10040; 10045; 62110; 62900

== ENCOUNTER 2019-10-25 12:17 | Emergency (ER) | payer OTHER ==
[~2019-10-25] VITALS: Ht 157.5 cm; Wt 106.1 kg
[2019-10-25] MEDS ORDERED: BUSPIRONE HCL10 MG PO (12:51)
[2019-10-25] MEDS ORDERED: VITAMIN C500 M1 PO (12:52)
[2019-10-25] MEDS ORDERED: VITAMINC500 PO (12:53)
[2019-10-25 17:35] VITALS: BP 120/76
== END 2019-10-25 17:36 | disposition short-term general hospital (02) ==
LOC: ER 12:17
DX: S03.02XA Dislocation of jaw, left side, initial encounter (principal); I10 Essential (primary) hypertension; J45.909 Unspecified asthma, uncomplicated; F20.9 Schizophrenia, unspecified; F17.210 Nicotine dependence, cigarettes, uncomplicated; Z86.711 Personal history of pulmonary embolism; Z91.048 Other nonmedicinal substance allergy status; Z88.0 Allergy status to penicillin; Z88.8 Allergy status to other drugs, medicaments and biological substances; X58.XXXA Exposure to other specified factors, initial encounter; Y93.89 Activity, other specified; Y92.89 Other specified places as the place of occurrence of the external cause; Y99.8 Other external cause status

== ENCOUNTER → 2020-07-06 | Emergency (ER) | payer OTHER ==
[~2020-07-06] VITALS: Ht 160 cm; Wt 106.6 kg
[~2020-07-06] MED LIST changes: +BUSPIRONE HCL10 MG PO; +MELATIN3 MG PO; +VITAMIN C500 M1 PO; +VITAMINC500 PO
[2020-07-07 00:41] LABS: HEMATOCRIT 44.4 % (37.0-47.0); MCH 31.3 pg (26.0-34.0); MCHC 33.8 g/dL (28.0-37.0); MCV 92.8 fL (80.0-100.0); RBC 4.79 mil/uL (4.20-5.00); RDW 12.7 % (10.5-14.5); WBC 13.3 thou/uL (4.0-11.0)
[2020-07-07 00:43] LABS: ANION GAP 10 mmol/L (7-16); BUN 15 mg/dL (7-18); CALCIUM 8.7 mg/dL (8.5-10.1); CHLORIDE 103 mmol/L (98-107); CO2 25 mmol/L (21-32); CREATININE 0.9 mg/dL (0.6-1.0); GLUCOSE 131 mg/dL (74-106); POTASSIUM 3.6 mmol/L (3.5-5.1); SALICYLATE < 2.8 mg/dL (2.8-20.0); SODIUM 138 mmol/L (136-145)
[2020-07-07 00:54] LABS: URINE BILIRUBIN NEGATIVE (Negative); URINE BLOOD NEGATIVE (Negative); URINE CLARITY CLEAR; URINE COLOR YELLOW; URINE GLUCOSE-RANDOM* NEGATIVE (Negative); URINE KETONES NEGATIVE (Negative); URINE LEUKOCYTES-REFLEX NEGATIVE (Negative); URINE NITRITE-REFLEX NEGATIVE (Negative); URINE PROTEIN (DIPSTICK) NEGATIVE (Negative); URINE SPECIFIC GRAVITY >= 1.030 (1.005-1.035); URINE UROBILINOGEN 0.2 E.U./dl (0.2-1.0)
[2020-07-07 01:01] LABS: AMP/METHAMP Negative (Negative); BARBITURATES Negative (Negative); BENZODIAZEPINES Negative (Negative); COCAINE Negative (Negative); METHADONE Negative (Negative); OPIATES Negative (Negative); PCP Negative (Negative)
--- NOTE | 2020-07-10 12:30 | EKG ---
[facility] [place] [address] ELECTROCARDIOGRAM REPORT Name: MAROC A VELÁSQUEZ [facility] [id number] Admission: 07/06/20 Attend Phys: Discharge: Date of : 89 Report #: [id number] THIS REPORT FOR: cc: Jesus Singh MD, Dennis R MD Lundgren, Craig H. MD [facility] ~ THIS REPORT FOR: //name// [facility] ED Test Date: 2020-07-09 Test Time: 13:57:42 Pat Name: MARCO A VELÁSQUEZ Department: Room: Gender: F Journeyman Press Operator: HERNANDEZ : 1995 Requested By: Howard Cornejo Order Number: [id number] MD: Leo Pop Measurements Intervals [place] Rate: 110 P: 6 NC: 162 QRS: 15 QRSD: 81 T: 41 QT: 351 QTc: 475 Interpretive Statements Sinus tachycardia Borderline T abnormalities, anterior leads No previous ECG available for comparison Electronically Signed On 07-10-2020 12:30:15 CDT by Leo Pop [email or web address] <ELECTRONICALLY SIGNED> By: Leo Pop MD, [facility] 07/10/20 1230 1357 135 Leo Pop MD, FACC /EPI
[2020-07-10 21:54] VITALS: BP 131/88; BP 97/76
== END ==
LOC: ER 23:59
PROVIDERS: Emergency Medicine
DX: R45.851 Suicidal ideations (principal); F20.9 Schizophrenia, unspecified; I10 Essential (primary) hypertension; J45.909 Unspecified asthma, uncomplicated; F17.210 Nicotine dependence, cigarettes, uncomplicated; Z79.899 Other long term (current) drug therapy; Z88.8 Allergy status to other drugs, medicaments and biological substances; Z88.0 Allergy status to penicillin; Z91.048 Other nonmedicinal substance allergy status; Z20.828 Contact with and (suspected) exposure to other viral communicable diseases

== ENCOUNTER 2020-08-27 23:17 | Emergency (ER) | payer OTHER ==
[~2020-08-27] VITALS: Ht 165.1 cm; Wt 90.7 kg
[2020-08-27] MEDS ORDERED: CLOZARIL200 MG PO (23:44)
[2020-08-27] MEDS ORDERED: DEPAKOTE250 MG PO (23:45)
[2020-08-27] MEDS ORDERED: ELIQUIS5 MG PO (23:45)
[2020-08-27] MEDS ORDERED: FEOSOL325 M1 PO (23:46)
[2020-08-27] MEDS ORDERED: OMEPRAZOLE40 MG PO (23:46)
[2020-08-27] MEDS ORDERED: VITAMIN C500 M2 PO (23:47)
[2020-08-27] MEDS ORDERED: BUSPIRONE HCL5 MG PO (23:47)
[2020-08-27] MEDS ORDERED: VERAPAMIL HCL40 MG PO (23:48)
[2020-08-27] MEDS ORDERED: NEURONTIN 400M400 M2 PO (23:48)
[2020-08-27] MEDS ORDERED: DOXEPIN HCL25 MG PO (23:52)
[2020-08-27] MEDS ORDERED: MELATONIN3 M1 PO (23:53)
[2020-08-27] MEDS ORDERED: BACTRIM DS TAB1 EAC1 PO (23:54)
[2020-08-28 03:31] VITALS: BP 110/79
== END 2020-08-28 03:24 | disposition home or self-care (01) ==
LOC: ER 23:17
DX: S50.851A Superficial foreign body of right forearm, initial encounter (principal); T22.211A Burn of second degree of right forearm, initial encounter; I10 Essential (primary) hypertension; J45.909 Unspecified asthma, uncomplicated; F17.210 Nicotine dependence, cigarettes, uncomplicated; Z91.5 Personal history of self-harm; Z79.899 Other long term (current) drug therapy; Z88.0 Allergy status to penicillin; Z88.8 Allergy status to other drugs, medicaments and biological substances; Z91.048 Other nonmedicinal substance allergy status; W22.8XXA Striking against or struck by other objects, initial encounter; Y93.89 Activity, other specified; Y92.89 Other specified places as the place of occurrence of the external cause; Y99.8 Other external cause status